=== PATIENT | female | born 1995 | race Caucasian/White ===

== ENCOUNTER 2021-10-08 10:32 | Emergency (ER) | payer OTHER, SELFPAY ==
[2021-10-08 11:01] LABS: COVID-19 Test Positive (Negative)
--- NOTE | 2021-10-08 11:02 | ED.URI ---
HPI - URI/Sore Throat General Chief Complaint: Upper Respiratory Symptoms Stated Complaint: SOB/cough/fever Time Seen by Provider: 10/08/21 11:02 Source: patient Mode of arrival: ambulatory Limitations: no limitations History of Present Illness HPI Narrative: 26-year-old female no known medical history presents to the emergency department with complaints of dry cough body aches, fatigue, subjective fevers and shows and shortness of breath X 3 days. Patient tells me she feels tired throughout the day with no energy. Patient is not a smoker. She is not vaccinated. MD elicited complaint: cough Onset (ago): day(s) (3) Consistency: constant Severity: mild Able to tolerate fluids by mouth: Yes Exacerbating factors: nothing Relieving factors: nothing Context: sick contacts (Aunt had a sick contact) Associated symptoms: fever (subjective), myalgias and cough Treatments prior to arrival: none Related Data Previous Rx's Medication Instructions Recorded benzonatate 100 mg capsule 100 mg PO BID PRN #20 cap 10/08/21 Allergies Allergy/AdvReac Type Severity Reaction Status Date / Time sumatriptan [From IMITREX] Allergy Unknown BURNING Verified 10/08/21 11:06 SENSATION Review of Systems Review of Systems: Constitutional : positive Fever, positive Chills, positive fatigue, positive Malaise ENT/Mouth : No sore throat, positive runny nose Eyes: No Discharge Cardiovascular : No Chest Pain, No SOB Respiratory : No Cough, No Sputum Gastrointestinal : No Nausea, No Vomiting, No Diarrhea Genitourinary : No Dysuria, No Urinary Frequency Musculoskeletal : positive Myalgia Skin : No rash Neuro : No Headache Yes all other systems are reviewed and are negative [facility] Past Medical History Attestation statement: The following information was validated with the patient. Source: old records reviewed and nursing notes reviewed Social History Social History Advance Directives: Yes Advance Directives Information Provided: Yes Advance Directives on File: No Physical Exam Vital Signs: Vital Signs: Last Vital Signs Temp 101.2 F H 10/08/21 11:06 Pulse 85 10/08/21 11:06 Resp 18 10/08/21 11:06 BP 117/69 10/08/21 11:06 Pulse Ox 97 10/08/21 11:06 BMI result Body Mass Index 17.4 Vital signs significant for fever. No hypoxia is tachycardic. Patient saturating well on room air. Appearance: Alert.? Oriented X3.? No acute distress.? Patient with a dry cough throughout the exam. Head: Normocephalic, atraumatic, no step-offs or deformities Eyes: Pupils equal, round and reactive to light.? ENT: Pharynx normal.? Neck: Normal inspection.? Neck supple.? CVS: Normal heart rate and rhythm.? Pulses normal.? Respiratory: No respiratory distress.? Breath sounds normal.? Abdomen: Soft and nontender.? Skin: Skin warm and dry.? Normal skin color.? Normal skin turgor.? Extremities: No lower extremity edema.? No calf ttp. 5/5 strength to bilateral upper and lower extremities Back: No midline tenderness, no C-spine tenderness, full range of motion, no CVA tenderness bilaterally Neuro: Oriented X 3.? No motor deficit.? No sensory deficit. Course Reevaluation(s) Reevaluation #1: COVID positive. Likely explaining patient's symptoms. Plan at this time is to discharge patient home, have given her strict return precautions. And I have written them out in her discharge. Time: 11:08 MDM - URI/Sore Throat MDM Narrative Medical decision making narrative: [id number] 26-year-old female no known medical history presents with COVID like symptoms times 3 days. Patient is not a smoker. She is not vaccinated. She denies chest pain and shortness of breath. Upon physical examination she is noted to have a fever, no tachypnea or hypoxia. Lungs are clear. Regular rate and rhythm. Abdomen soft nontender nondistended. Nonfocal. Plan COVID test Medical Records Attestation: I reviewed the patient's medical records. Lab Data Attestation: I reviewed the patient's lab results. Labs: Lab Results 10/08/21 Range/Units 10:48 COVID-19 ([facility]) Positive A (Negative) COVID-19 Clin Com See Note Critical Care Time Critical Care Time Critical Care Time: No Discharge Plan Discharge Clinical Impression: COVID-19 Patient Disposition: Home, Self-Care Instructions: COVID-19 (Coronavirus Disease 2019) (ED) Additional Instructions: Take your medications as prescribed. If you were prescribed antibiotics today, it is important that you take your medication to their entirety, do not skip any doses, do not finish them early. Today you tested positive for COVID-19. Take Ibuprofen or Tylenol as needed for fevers or body aches. Quarantine for 7 days and ensure you wear a mask. After 7 days you should wear a mask for 3 days after that. Practice social distancing and good hand hygiene. Drink plenty of fluids. Follow-up with your primary care provider this week. Return to the emergency department with new or worsening symptoms. In case of emergency call 911 Take your medications as prescribed. If you were prescribed antibiotics today, it is important that you take your medication to their entirety, do not skip any doses, do not finish them early. Today you tested positive for COVID-19. Take Ibuprofen or Tylenol as needed for fevers or body aches. Quarantine for 7 days and ensure you wear a mask. After 7 days you should wear a mask for 3 days after that. Practice social distancing and good hand hygiene. Drink plenty of fluids. Follow-up with your primary care provider this week. Return to the emergency department with new or worsening symptoms. In case of emergency call 911 You can purchase a pulse oximeter from your local pharmacy or grocery store, and monitor your oxygen saturation if it goes below 94% you should return to the emergency department for further evaluation. Prescriptions: New benzonatate 100 mg capsule 100 mg PO BID PRN (Reason: cough) Qty: 20 RF: 0 Referrals: ED Physician,Generic [Physician] - 2 days Stand Alone Forms: Work/School Release
[2021-10-08 11:06] VITALS: BP 117/69; PULSE 85; RESP 18; TEMP 38.4; O2SAT 97; BMI 17.4
[2021-10-08] MEDS: Acetaminophen 325 MG TABLET 650 MG PO (11:22)
== END 2021-10-08 11:24 | disposition home or self-care (01) ==
PROVIDERS: Emergency Provider Emergency Medicine
DX: U07.1 COVID-19 (principal); Z20.822 Contact with and (suspected) exposure to COVID-19
CPT/HCPCS: 36415; 87635; 99283